=== PATIENT | male | born 1985 | race Caucasian/White ===

== ENCOUNTER → 2021-01-11 09:54 | Outpatient (CLI) | payer OTHER, SELFPAY ==
[2021-01-11 12:22] LABS: COVID19 -Nasal RAPID Negative (Negative)
== END ==
PROVIDERS: Visit Provider Student in an Organized Health Care Education/Training Program
DX: Z20.822 Contact with and (suspected) exposure to COVID-19 (principal)
CPT/HCPCS: 87635

== ENCOUNTER 2021-01-12 11:09 | Day surgery (SDC) | payer OTHER, SELFPAY ==
[2021-01-12] VITALS (8 sets, daily range): BP systolic 111–133; BP diastolic 63–89; PULSE 63–84; RESP 12–16; TEMP 36.4–37.3; O2SAT 99–100; BMI 23.6
[2021-01-12] MEDS: LACTATED RINGERS 1,000 ML 42 ML IV (11:41)
--- NOTE | 2021-01-12 12:08 | PM.PREOP ---
Pre-operative Note COVID-19 COVID-19 status: Negative Result date/Date tested (Pos, Neg/Pending): 01/10/21 Interval Note History & Physical reviewed/Exam performed by Physician: Yes Changes to H&P: No
[2021-01-12] MEDS: CEFAZOLIN 2 GM/100 ML FROZ.PIGGY IV (12:26)
--- NOTE | 2021-01-12 12:58 | SUR.OPER ---
Supine on padded OR bed, head on pillow, right arm secured on padded arm board at <90 degrees abduction, left arm draped freea on padded a black hand table , legs uncrossed, safety belt at thigh, tape over blanket over lower legs.
[2021-01-12] MEDS: BUPIVACAINE 0.5% W/ EPI (PF) 30 ML VIAL INJ (13:10)
--- NOTE | 2021-01-12 13:51 | PM.OP.1 ---
Operative Date/Time/Diagnoses Date of procedure: 01/12/21 Time of procedure: 13:51 Pre-op diagnosis: Left scapholunate ligament rupture Post-op diagnosis: same Procedure & Clinicians Procedure: Left scapholunate ligament reconstruction Same procedure as scheduled: Yes Indications: Scapholunate rupture Surgeon: Duke Daly Click Yes if Unassisted: Yes Anesthesia Type: General Operative Notes Findings: Tear of the scapholunate ligament but no sign of any significant diastasis or DISI deformity. Closure Type: primary Specimen(s): none sent Applied: implant(s) (Three Arthrex SwiveLock screws, 1 K-wire) Estimated Blood Loss (mL): 0 Blood products transfused: none Tourniquet time (min): 49 Procedure in detail: On date of service, patient was met in the holding area where his operative site was signed and witnessed by the OR staff. The surgery is once again discussed with the patient in remaining questions or concerns he had were answered fully. Patient was taken back to the operating theater and placed on the operating table in a supine position. Great care was taken to ensure that all bony prominences were appropriately padded. A well-padded tourniquet was placed up along the upper extremity. Time-out was performed verifying patient's name, procedure, and operative site. The limb was prepped and draped in the normal sterile fashion. An Esmarch was used to exsanguinate the limb the tourniquet was turned up to 250 mm of mercury. Longitudinal incision was made. The incision was ulnar to the Chayito's tubercle. It was centered over the radiocarpal joint. Fifteen blade was used to incise through skin and fascial tissue. Sharp dissection was continued with a 15 blade until the extensor mechanism was identified. Branches of the superficial radial nerve were identified and protected as well as branches coming off ulnarly. Once we had the extensor mechanism identified and was split allowing a release of the EPL tendon. This was also done ulnarly opening up 4th extensor compartment and then done radially opening up the 2nd extensor compartment. This allowed us to retract the extensor tendons. We next took a small strip of tendon tissue from the ECR be which was then whip stitched and then set aside to be used later. Next, the radiocarpal joint was opened preserving the carpal ligaments. This gave us good visualization of the scapholunate interval. There was a tear to the scapholunate ligament. No sign of any significant diastasis or DISI deformity. No sign of any radiocarpal arthritic process or arthritis or collapse of the carpus. K-wire was placed between the scaphoid and the capitate to keep it from falling into flexion. Next, 3 guidewires were placed 1 in the lunate and 2 in the scaphoid 1 by the scapholunate interval and then 1 very distally. C-arm used to verify reduction of the scapholunate interval as well as guidewire positioning. Once we were satisfied with the positioning cannulated drill was used to drill over the 3 guidewires. The bony hole tunnels were then copiously irrigated removing any remaining tissue. FiberTape was tenodesed into the 1st hole in the scaphoid. Then under tension this was then placed into the 2nd hole into the lunate going across the scapholunate interval providing a solid repair of the scapholunate interval. Next, the suture material were then brought up to the distal hole into the scaphoid and tenodesed once again help keep the scaphoid from falling into flexion. C-arm was brought in to verify maintenance of reduction. We were able to flex and extend the wrist with no abnormal motion of the scapholunate interval been no sign of any diastasis. Good signs of a solid repair of the scapholunate interval. The wound was then copiously irrigated. The capsule was closed and repaired using 2-0 Ethibond. The extensor mechanism was closed with Vicryl recreating the 4th extensor compartment as well as the 3rd and 2nd extensor compartments. The rest of the wound was closed in layered fashion. Patient's hand and arm was cleaned dried and dressed. Patient was placed into a splint and taken to the PACU in stable condition. Complications: none Post-operative Condition: stable Disposition: PACU Plan for aftercare: Patient will follow our postoperative protocol for scapholunate ligament reconstruction
--- NOTE | 2021-01-12 14:12 | SUR.PHASEI ---
Surgeon placed prescriptions for Percocet 5mg-325mg and for Vistaril 25mg on pt chart to take home with pt upon discharge.
== END 2021-01-12 14:54 | disposition home or self-care (01) ==
PROVIDERS: Referring Provider Orthopaedic Surgery; Visit Provider Orthopaedic Surgery
PROC: (CPT 25320; principal; 2021-01-12 12:45)
DX: S63.8X2A Sprain of other part of left wrist and hand, initial encounter (principal); V18.0XXA Pedal cycle driver injured in noncollision transport accident in nontraffic accident, initial encounter; Y93.55 Activity, bike riding
CPT/HCPCS: 25320; J0690; J1100; J2250; J2405; J2704; J3010